=== PATIENT | male | born 1960 | race Caucasian/White ===

== ENCOUNTER 2017-08-21 14:50 | Inpatient (IN) | payer OTHER ==
[2017-08-21] VITALS (11 sets, daily range): BP systolic 110–142; BP diastolic 62–91; PULSE 72–146; RESP 14–20; TEMP 97.8–98.4; O2SAT 95–100
[~2017-08-21 14:50] MED LIST: ASPI81CH25 PO; EMPA1TAB PO; GLIP5TAB8 PO; GLUC-15; HYDR-3583 PO; INSU1INJ13 SQ; LINA1TAB PO; LORA-373 PO; PLAV75TA29 PO; ROSU1TAB10 PO; VIAG50TA PO
--- NOTE | 2017-08-21 15:10 | PD ---
HPI Chief Complaint: Cardiac Complaint Time Seen by Provider: 15:10 Travel History International Travel<30 days: No Contact w/Intl Traveler<30days: No Traveled to known affect area: No PFSH Past Medical History Hx Anticoagulant Therapy: Yes (PLAVIX) Cancer: No Cardiovascular Problems: Yes High Cholesterol: Yes Diabetes: Yes Endocrine: Yes Genitourinary: No Hypertension: Yes Immune Disorder: No Musculoskeletal: No Psychiatric: No Reproductive: No Respiratory: No Past Surgical History Cardiac Surgery: Yes Social History Alcohol Use: No Tobacco Use: No Substance Use: No Allergies-Medications (Allergen,Severity, Reaction): Coded Allergies: atorvastatin (Unverified Allergy, Unknown, leg cramps, 05/30/17) Reported Meds & Prescriptions Reported Meds & Active Scripts Active Plavix (Clopidogrel Bisulfate) 75 Mg Tab 75 Mg PO DAILY Aspirin Low Strength (Aspirin) 81 Mg Chew 81 Mg PO DAILY Rosuvastatin (Rosuvastatin Calcium) 40 Mg Tab 40 Mg PO DAILY Jentadueto XR (Linagliptin-Metformin XR) 2.5-1,000 Mg Tab 1 Tab PO BID Jardiance (Empagliflozin) 10 Mg Tab 10 Mg PO DAILY Reported Hydrocodone-Acetaminophen 10-325 mg Tab 1 Tab PO Q6H PRN Viagra (Sildenafil Citrate) 50 Mg Tab 50 Mg PO DAILY PRN Lorazepam 0.5 Mg Tab 0.5 Mg PO BID Glucose Meter Test Strips (Glucose Blood) 1 Fidelia Fidelia Tresiba Flextouch Pen Inj (Insulin Degludec Inj) 600 unit/3 ML Pen 40 Units SQ DAILY Glipizide 5 Mg Tab 5 Mg PO BIDAC Take 30 minutes before a meal Data Data Last Documented VS Vital Signs Date Time Temp Pulse Resp B/P (MAP) Pulse Ox O2 Delivery O2 Flow Rate FiO2 08/21/17 14:57 98.4 86 14 133/64 (87) 98 Orders Orders Electrocardiogram (08/21/17 14:56) Basic Metabolic Panel (Bmp) (08/21/17 14:56) Ckmb (Isoenzyme) Profile (08/21/17 14:56) Complete Blood Count With Diff (08/21/17 14:56) Magnesium (Mg) (08/21/17 14:56) Prothrombin Time / Inr (Pt) (08/21/17 14:56) Act Partial Throm Time (Ptt) (11/6/17 14:56) Troponin I (08/21/17 14:56) Chest, Pa & Lat (08/21/17 14:56) Jose Martins MD Aug 21, 2017 15:10
--- NOTE | 2017-08-21 15:24 | RADRPT ---
EXAM DATE/TIME: 08/21/2017 15:13 [place] COMPARISON: No previous studies available for comparison. INDICATIONS : Chest pain and rapid heart beat today MEDICAL HISTORY : Cardiovascular disease. SURGICAL HISTORY : coronary artery stent x 5 ENCOUNTER: Initial ACUITY: 1 day PAIN SCORE: 8/10 LOCATION: Bilateral chest FINDINGS: PA and lateral views of the chest demonstrate the lungs to be symmetrically aerated without evidence of mass, infiltrate or effusion. The cardiomediastinal contours are unremarkable. Osseous structure s are intact. CONCLUSION: No acute disease. Evan Arguello MD on August 21, 2017 at 15:22 Board Certified Radiologist. This report was verified electronically.
--- NOTE | 2017-08-21 15:57 | PD ---
HPI Chief Complaint: Cardiac Complaint Time Seen by Provider: 15:35 Travel History International Travel<30 days: No Contact w/Intl Traveler<30days: No Traveled to known affect area: No History of Present Illness HPI Patient is a 57-year-old male presenting to the emergency department for evaluation of palpitations. Patient states that approximately 8:30 this morning he began to feel his heart racing, experienced chest tightness and felt clammy. He went to his public relations studies director's office, Dr. Elias and it was noted that his heart rate was in the 140s and he was sent to the emergency department for evaluation for atrial flutter. Patient continues to have mild chest tightness, he states it feels like he pulled a muscle. He rates his pain as 3 out of 10. The chest pain does not radiate. He reports feeling nauseous yesterday but denies any abdominal pain, nausea or vomiting at this time. Patient reports a history of [place] last year with stent placement, type 2 diabetes, he reports last A1c is 7.1%, hyperlipidemia. He reports compliance of aspirin and Plavix. He is on a low dose lisinopril for renal protective effect. PFSH Past Medical History Hx Anticoagulant Therapy: Yes (PLAVIX) Cancer: No Cardiovascular Problems: Yes High Cholesterol: Yes Diabetes: Yes Endocrine: Yes Genitourinary: No Hypertension: Yes Immune Disorder: No Musculoskeletal: No Psychiatric: No Reproductive: No Respiratory: No Past Surgical History Cardiac Surgery: Yes Social History Alcohol Use: No Tobacco Use: No Substance Use: No Allergies-Medications (Allergen,Severity, Reaction): Coded Allergies: atorvastatin (Verified Allergy, Unknown, leg cramps, 08/21/17) Reported Meds & Prescriptions Reported Meds & Active Scripts Active Plavix (Clopidogrel Bisulfate) 75 Mg Tab 75 Mg PO DAILY Aspirin Low Strength (Aspirin) 81 Mg Chew 81 Mg PO DAILY Rosuvastatin (Rosuvastatin Calcium) 40 Mg Tab 40 Mg PO DAILY Jentadueto XR (Linagliptin-Metformin XR) 2.5-1,000 Mg Tab 1 Tab PO BID Jardiance (Empagliflozin) 10 Mg Tab 10 Mg PO DAILY Reported Lisinopril 2.5 Mg Tab 2.5 Mg PO DAILY Hydrocodone-Acetaminophen 10-325 mg Tab 1 Tab PO Q6H PRN Viagra (Sildenafil Citrate) 50 Mg Tab 50 Mg PO DAILY PRN Lorazepam 0.5 Mg Tab 0.5 Mg PO BID Glucose Meter Test Strips (Glucose Blood) 1 Fidelia Fidelia Tresiba Flextouch Pen Inj (Insulin Degludec Inj) 600 unit/3 ML Pen 40 Units SQ DAILY Glipizide 5 Mg Tab 5 Mg PO BIDAC Take 30 minutes before a meal Review of Systems Except as stated in HPI: all other systems reviewed are Neg General / Constitutional: No: Fever, Chills Eyes: No: Blurred Vision HENT: No: Headaches, Lightheadedness Cardiovascular: Positive: Chest Pain or Discomfort, Palpitations, Tachycardia, Diaphoresis Respiratory: Positive: Shortness of Breath Gastrointestinal: Positive: Nausea (resolved), No: Vomiting, Diarrhea Musculoskeletal: No: Myalgias Neurologic: No: Weakness, Dizziness, Syncope, Change in Mentation Physical Exam Narrative GENERAL: Well-developed, well-nourished, alert male. Resting comfortably in no acute distress. SKIN: Warm and dry. HEAD: Atraumatic. Normocephalic. EYES: Pupils equal and round. No scleral icterus. No injection or drainage. ENT: No nasal bleeding or discharge. Mucous membranes pink and moist. NECK: Trachea midline. No JVD. CARDIOVASCULAR: Irregularly irregular, tachycardic. RESPIRATORY: No accessory muscle use. Clear to auscultation. Breath sounds equal bilaterally. GASTROINTESTINAL: Abdomen soft, non-tender, nondistended. Hepatic and splenic margins not palpable. MUSCULOSKELETAL: Extremities without clubbing, cyanosis, or edema. No obvious deformities. NEUROLOGICAL: Awake and alert. No obvious cranial nerve deficits. Motor grossly within normal limits. Five out of 5 muscle strength in the arms and legs. Normal speech. PSYCHIATRIC: Appropriate mood and affect; insight and judgment normal. Data Data Last Documented VS Vital Signs Date Time Temp Pulse Resp B/P (MAP) Pulse Ox O2 Delivery O2 Flow Rate FiO2 08/21/17 17:08 121 136/76 08/21/17 16:29 16 95 Nasal Cannula 2.00 08/21/17 15:45 98.0 Orders Orders Electrocardiogram (08/21/17 14:56) Basic Metabolic Panel (Bmp) (08/21/17 14:56) Ckmb (Isoenzyme) Profile (08/21/17 14:56) Complete Blood Count With Diff (08/21/17 14:56) Magnesium (Mg) (08/21/17 14:56) Prothrombin Time / Inr (Pt) (08/21/17 14:56) Act Partial Throm Time (Ptt) (08/21/17 14:56) Troponin I (08/21/17 14:56) Chest, Pa & Lat (08/21/17 14:56) Thyroid Stimulating Hormone (08/21/17 15:43) Thyroxine (T4) (08/21/17 15:43) B-Type Natriuretic Peptide (08/21/17 15:43) Ecg Monitoring (08/21/17 15:43) Bilateral Bp Monitoring (08/21/17 15:43) Iv Access Insert/Monitor (08/21/17 15:43) Oximetry (08/21/17 15:43) Sodium Chloride 0.9% Flush (Ns Flush) (08/21/17 15:45) Diltiazem Inj (Cardizem Inj) (08/21/17 16:00) Diltiazem Inj (Cardizem Inj) (08/21/17 16:45) Sodium Chlor 0.9% 1000 Ml Inj (Ns 1000 M (08/21/17 16:45) Diltiazem Inj (Cardizem Inj) (08/21/17 17:15) CKMB (08/21/17 15:45) CKMB% (08/21/17 15:45) Electrocardiogram (08/21/17 ) Admit Order (Ed Use Only) (08/21/17 17:58) Labs Laboratory Tests Test 08/21/17 15:45 08/21/17 16:50 Prothrombin Time 10.5 SEC Prothromb Time International Ratio 1.0 RATIO Activated Partial Thromboplast Time 25.6 SEC Blood Urea Nitrogen 21 MG/DL Creatinine 1.36 MG/DL Random Glucose 208 MG/DL Calcium Level 8.9 MG/DL Magnesium Level 2.0 MG/DL Sodium Level 141 MEQ/L Potassium Level 3.8 MEQ/L Chloride Level 106 MEQ/L Carbon Dioxide Level 22.0 MEQ/L Anion Gap 13 MEQ/L Estimat Glomerular Filtration Rate 54 ML/MIN Total Creatine Kinase 131 U/L Creatine Kinase MB 2.1 NG/ML Troponin I LESS THAN 0.02 NG/ML B-Type Natriuretic Peptide 18 PG/ML Thyroxine (T4) 8.1 MCG/DL Thyroid Stimulating Hormone 3rd Gen 1.010 uIU/ML White Blood Count 11.1 TH/MM3 Red Blood Count 5.10 MIL/MM3 Hemoglobin 14.7 GM/DL Hematocrit 43.6 % Mean Corpuscular Volume 85.6 FL Mean Corpuscular Hemoglobin 28.8 PG Mean Corpuscular Hemoglobin Concent 33.6 % Red Cell Distribution Width 13.4 % Platelet Count 241 TH/MM3 Mean Platelet Volume 8.5 FL Neutrophils (%) (Auto) 69.3 % Lymphocytes (%) (Auto) 21.3 % Monocytes (%) (Auto) 7.7 % Eosinophils (%) (Auto) 1.4 % Basophils (%) (Auto) 0.3 % Neutrophils # (Auto) 7.7 TH/MM3 Lymphocytes # (Auto) 2.4 TH/MM3 Monocytes # (Auto) 0.9 TH/MM3 Eosinophils # (Auto) 0.2 TH/MM3 Basophils # (Auto) 0.0 TH/MM3 CBC Comment DIFF FINAL Differential Comment MDM Medical Decision Making Medical Screen Exam Complete: Yes Emergency Medical Condition: Yes Medical Record Reviewed: Yes Interpretation(s) Vital Signs Date Time Temp Pulse Resp B/P (MAP) Pulse Ox O2 Delivery O2 Flow Rate FiO2 08/21/17 14:57 98.4 86 14 133/64 (87) 98 Last Impressions Chest X-Ray 08/21/17 1456 Signed Impressions: Service Date/Time: Monday, August 21, 2017 15:13 - CONCLUSION: No acute disease. Evan Arguello MD Laboratory Tests Test 08/21/17 15:45 08/21/17 16:50 Prothrombin Time 10.5 SEC Prothromb Time International Ratio 1.0 RATIO Activated Partial Thromboplast Time 25.6 SEC Blood Urea Nitrogen 21 MG/DL Creatinine 1.36 MG/DL Random Glucose 208 MG/DL Calcium Level 8.9 MG/DL Magnesium Level 2.0 MG/DL Sodium Level 141 MEQ/L Potassium Level 3.8 MEQ/L Chloride Level 106 MEQ/L Carbon Dioxide Level 22.0 MEQ/L Anion Gap 13 MEQ/L Estimat Glomerular Filtration Rate 54 ML/MIN Total Creatine Kinase 131 U/L Creatine Kinase MB 2.1 NG/ML Troponin I LESS THAN 0.02 NG/ML B-Type Natriuretic Peptide 18 PG/ML Thyroxine (T4) 8.1 MCG/DL Thyroid Stimulating Hormone 3rd Gen 1.010 uIU/ML White Blood Count 11.1 TH/MM3 Red Blood Count 5.10 MIL/MM3 Hemoglobin 14.7 GM/DL Hematocrit 43.6 % Mean Corpuscular Volume 85.6 FL Mean Corpuscular Hemoglobin 28.8 PG Mean Corpuscular Hemoglobin Concent 33.6 % Red Cell Distribution Width 13.4 % Platelet Count 241 TH/MM3 Mean Platelet Volume 8.5 FL Neutrophils (%) (Auto) 69.3 % Lymphocytes (%) (Auto) 21.3 % Monocytes (%) (Auto) 7.7 % Eosinophils (%) (Auto) 1.4 % Basophils (%) (Auto) 0.3 % Neutrophils # (Auto) 7.7 TH/MM3 Lymphocytes # (Auto) 2.4 TH/MM3 Monocytes # (Auto) 0.9 TH/MM3 Eosinophils # (Auto) 0.2 TH/MM3 Basophils # (Auto) 0.0 TH/MM3 CBC Comment DIFF FINAL Differential Comment Differential Diagnosis A. fib with RVR versus congestive heart failure versus metabolic abnormality versus ACS versus other Narrative Course Patient is a 57-year-old male with a history of coronary artery disease, type 2 diabetes, hyperlipidemia presenting to the emergency department for evaluation of atrial flutter after being evaluated by his public relations studies director this morning. Initial EKG shows atrial flutter/tachycardia with a rate of 148. Vital signs are otherwise stable. Labs ordered and pending. Cardizem ordered. Patient continued to be tachycardic after 20 mg of Cardizem IV. A second Cardizem bolus followed by Cardizem drip was ordered. CBC reviewed, no acute findings identified Chemistry with slight elevation of BUN/creatinine otherwise unremarkable. Cardiac enzymes are negative 1 set BNP 18 Thyroid function is unremarkable Chest x-ray shows no acute disease Patient was reassessed at 1740, heart rate currently is in the 80s. Patient is resting comfortably, is at bedside. [facility] paged for admission. Discussed with Dr. Horton who accepted admission for Dr. Bridges. Admit orders placed. Repeat EKG shows atrial fibrillation with a rate of 94. Diagnosis Primary Impression: Atrial flutter with rapid ventricular response Additional Impression: Chest pain Qualified Codes: R07.9 - Chest pain, unspecified Admitting Information Admitting Physician Requests: Admit Condition: Stable Kmai Mccollum [facility] Aug 21, 2017 15:57
[2017-08-21] MEDS ORDERED: DILTIAZEM HCL 25 MG/5 ML VIAL IV ONE ×2 (16:00)
[2017-08-21] MEDS: SODIUM CHLORIDE 0.9% FLUSH 10 ML FLUSH IVF PRN ×4 (16:11→16:12)
[2017-08-21] MEDS ORDERED: LISI2.5T3 PO ×2 (16:29)
[2017-08-21 16:39] LABS: PROTHROMBIN TIME - PATIENT 10.5 SEC (9.8-11.6)
[2017-08-21] MEDS ORDERED: DILTIAZEM INJ 125 MG in SODIUM CHLORIDE 0.9% INJ 100 ML IV PRN ×4 (16:45)
[2017-08-21 16:47] LABS: THYROXINE (T4) 8.1 MCG/DL (4.5-12.1)
[2017-08-21] MEDS ORDERED: DILTIAZEM HCL 50 MG/10 ML VIAL IV PUSH ONE ×2 (17:00)
[2017-08-21] MEDS: SODIUM CHLOR 0.9% 1000 ML INJ 1,000 ML IV SCH ×2 (17:08)
[2017-08-21 17:14] LABS: TROPONIN I LESS THAN 0.02 NG/ML (0.02-0.05)
[2017-08-21] MEDS ORDERED: DILTIAZEM HCL 25 MG/5 ML (Bolus) IV PUSH ONE ×2 (17:15)
[2017-08-21 17:16] LABS: BLOOD UREA NITROGEN 21 MG/DL (7-18); CALCIUM 8.9 MG/DL (8.5-10.1); CHLORIDE 106 MEQ/L (98-107); CREATININE 1.36 MG/DL (0.60-1.30); GLOMERULAR FILTRATION RATE 54 ML/MIN (>89); GLUCOSE,RANDOM 208 MG/DL (74-106); SODIUM (NA) 141 MEQ/L (136-145)
[2017-08-21 17:20] LABS: AUTOMATED NEUTROPHIL # 7.7 TH/MM3 (1.8-7.7); BASOPHIL % 0.3 % (0.0-2.0); EOSINOPHIL # 0.2 TH/MM3 (0-0.4); EOSINOPHIL % 1.4 % (0.0-4.0); HEMATOCRIT 43.6 % (39.0-51.0); HEMOGLOBIN 14.7 GM/DL (13.0-17.0); LYMPH % 21.3 % (9.0-44.0); LYMPHOCYTE # 2.4 TH/MM3 (1.0-4.8); MEAN CELL VOLUME 85.6 FL (80.0-100.0); MEAN CORPUSCULAR HEMOGLOBIN 28.8 PG (27.0-34.0); MEAN CORPUSCULAR HGB CONC 33.6 % (32.0-36.0); MEAN PLATELET VOLUME 8.5 FL (7.0-11.0); MONO % 7.7 % (0.0-8.0); MONOCYTE # 0.9 TH/MM3 (0-0.9); NEUT % 69.3 % (16.0-70.0); PLATELET COUNT 241 TH/MM3 (150-450); RED CELL DISTRIBUTION WIDTH 13.4 % (11.6-17.2); WHITE BLOOD COUNT 11.1 TH/MM3 (4.0-11.0)
[2017-08-21] MEDS ORDERED: MAGNESIUM HYDROXIDE SUSP 30 ML CUP PO PRN ×2 (19:45)
[2017-08-21] MEDS ORDERED: SENNOSIDES 8.6 MG TAB PO PRN ×2 (19:45)
[2017-08-21] MEDS ORDERED: LACTULOSE SYRUP 20 GM/30 ML CUP PO PRN ×2 (19:45)
[2017-08-21] MEDS ORDERED: BISACODYL 10 MG SUPP RECTAL PRN ×2 (19:45)
[2017-08-21] MEDS ORDERED: NALOXONE HCL 0.4 MG/ML AMP IV PUSH PRN ×2 (19:45)
[2017-08-21] MEDS ORDERED: SODIUM CHLORIDE 0.9% FLUSH 10 ML FLUSH IV FLUSH PRN ×2 (19:45)
[2017-08-21] MEDS ORDERED: PILL SPLITTER OTHER PRN ×2 (20:30)
[2017-08-21] MEDS ORDERED: LINAGLIPTIN METFORMIN PO SCH ×2 (21:00)
[2017-08-21] MEDS ORDERED: METFORMIN PO SCH ×2 (21:00)
[2017-08-21] MEDS: DOCUSATE SODIUM 50 MG/SENNA 8.6 MG TAB PO SCH ×2 (21:00)
[2017-08-21] MEDS ORDERED: LINAGLIPTIN PO SCH ×2 (21:00)
[2017-08-21] MEDS: SODIUM CHLORIDE 0.9% FLUSH 10 ML FLUSH IV FLUSH SCH ×2 (21:00)
--- NOTE | 2017-08-21 21:07 | HHI.HP ---
HPI Service [facility] Hospitalists Primary Care Physician Noam Camilo MD, PhD Admission Diagnosis AFLUTTER W/ RVR Chief Complaint: sent by cardiology for rapid atrial flutter Travel History International Travel<30 Days: No Contact w/Intl Traveler <30 Da: No Traveled to Known Affected Are: No History of Present Illness Patient is a 57-year-old male presenting to the emergency department for evaluation of palpitations. Patient states that approximately 8:30 this morning he began to feel his heart racing, experienced chest tightness and felt clammy. 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 Elias and it was noted that his heart rate was in the 140s and he was sent to the emergency department for evaluation for atrial flutter. Patient continues to have mild chest tightness, he states it feels like he pulled a muscle. He rates his pain as 3 out of 10. The chest pain does not radiate. He reports feeling nauseous yesterday but denies any abdominal pain, nausea or vomiting at this time. Patient reports a history of [place] last year with stent placement, type 2 diabetes, he reports last A1c is 7.1%, hyperlipidemia. He reports compliance of aspirin and Plavix. He is on a low dose lisinopril for renal protective effect. Patient did receive cardiazem 2 bolus and drip with improvement of symptoms. Review of Systems Respiratory: COMPLAINS OF: Shortness of breath Cardiovascular: COMPLAINS OF: Chest pain, Palpitations Past Family Social History Past Medical History hyperlipidemia,diabetes,[place] cad Past Surgical History cardiac stent Reported Medications Plavix (Clopidogrel Bisulfate) 75 Mg Tab 75 Mg PO DAILY Aspirin Low Strength (Aspirin) 81 Mg Chew 81 Mg PO DAILY Rosuvastatin (Rosuvastatin Calcium) 40 Mg Tab 40 Mg PO DAILY Jentadueto XR (Linagliptin-Metformin XR) 2.5-1,000 Mg Tab 1 Tab PO BID Jardiance (Empagliflozin) 10 Mg Tab 10 Mg PO DAILY Reported Lisinopril 2.5 Mg Tab 2.5 Mg PO DAILY Hydrocodone-Acetaminophen 10-325 mg Tab 1 Tab PO Q6H PRN Viagra (Sildenafil Citrate) 50 Mg Tab 50 Mg PO DAILY PRN Lorazepam 0.5 Mg Tab 0.5 Mg PO BID Glucose Meter Test Strips (Glucose Blood) 1 Fidelia Fidelia Tresiba Flextouch Pen Inj (Insulin Degludec Inj) 600 unit/3 ML Pen 40 Units SQ DAILY Glipizide 5 Mg Tab 5 Mg PO BIDAC Take 30 minutes before a meal Allergies: Coded Allergies: atorvastatin (Verified Allergy, Unknown, leg cramps, 08/21/17) Social History NS,ND Physical Exam Vital Signs Vital Signs Date Time Temp Pulse Resp B/P (MAP) Pulse Ox O2 Delivery O2 Flow Rate FiO2 08/21/17 19:45 106 128/76 08/21/17 18:01 90 16 113/78 (90) 97 08/21/17 17:08 121 136/76 08/21/17 16:29 103 16 115/72 (86) 95 Nasal Cannula 2.00 08/21/17 15:45 146 115/78 (90) 08/21/17 15:45 (104) 08/21/17 15:45 98.0 145 142/72 (95) 130/91 (104) 08/21/17 15:45 Nasal Cannula 2.00 08/21/17 15:45 20 96 Nasal Cannula 2.00 08/21/17 14:57 98.4 86 14 133/64 (87) 98 Physical Exam GENERAL: This is a well-nourished, well-developed patient, in no apparent distress. SKIN: No rashes, ecchymoses or lesions. Cool and dry. HEAD: Atraumatic. Normocephalic. No temporal or scalp tenderness. EYES: Pupils equal round and reactive. Extraocular motions intact. No scleral icterus. No injection or drainage. ENT: Nose without bleeding, purulent drainage or septal hematoma. Throat without erythema, tonsillar hypertrophy or exudate. Uvula midline. Airway patent. NECK: Trachea midline. No JVD or lymphadenopathy. Supple, nontender, no meningeal signs. CARDIOVASCULAR: Irreg rate and rhythm without murmurs, gallops, or rubs. RESPIRATORY: Clear to auscultation. Breath sounds equal bilaterally. No wheezes , rales, or rhonchi. GASTROINTESTINAL: Abdomen soft, non-tender, nondistended. No hepato-splenomegaly , or palpable masses. No guarding. MUSCULOSKELETAL: Extremities without clubbing, cyanosis, or edema. No joint tenderness, effusion, or edema noted. No calf tenderness. Negative Homans sign bilaterally. NEUROLOGICAL: Awake and alert. Cranial nerves II through XII intact. Motor and sensory grossly within normal limits. Five out of 5 muscle strength in all muscle groups. Normal speech. Laboratory Laboratory Tests Test 08/21/17 15:45 08/21/17 16:50 Prothrombin Time 10.5 Prothromb Time International Ratio 1.0 Activated Partial Thromboplast Time 25.6 Blood Urea Nitrogen 21 Creatinine 1.36 Random Glucose 208 Calcium Level 8.9 Magnesium Level 2.0 Sodium Level 141 Potassium Level 3.8 Chloride Level 106 Carbon Dioxide Level 22.0 Anion Gap 13 Estimat Glomerular Filtration Rate 54 Total Creatine Kinase 131 Creatine Kinase MB 2.1 Troponin I LESS THAN 0.02 B-Type Natriuretic Peptide 18 Thyroxine (T4) 8.1 Thyroid Stimulating Hormone 3rd Gen 1.010 White Blood Count 11.1 Red Blood Count 5.10 Hemoglobin 14.7 Hematocrit 43.6 Mean Corpuscular Volume 85.6 Mean Corpuscular Hemoglobin 28.8 Mean Corpuscular Hemoglobin Concent 33.6 Red Cell Distribution Width 13.4 Platelet Count 241 Mean Platelet Volume 8.5 Neutrophils (%) (Auto) 69.3 Lymphocytes (%) (Auto) 21.3 Monocytes (%) (Auto) 7.7 Eosinophils (%) (Auto) 1.4 Basophils (%) (Auto) 0.3 Neutrophils # (Auto) 7.7 Lymphocytes # (Auto) 2.4 Monocytes # (Auto) 0.9 Eosinophils # (Auto) 0.2 Basophils # (Auto) 0.0 CBC Comment DIFF FINAL Differential Comment Result Diagram: 08/21/17 1650 08/21/17 1545 Imaging Last 24 hours Impressions Chest X-Ray 08/21/17 1456 Signed Impressions: Service Date/Time: Monday, August 21, 2017 15:13 - CONCLUSION: No acute disease. Evan Arguello MD Course ekg rapid atrial flutter ronald controlled ventricular response Caprini VTE Risk Assessment Caprini VTE Risk Assessment: Mod/High Risk (score >= 2) Caprini Risk Assessment Model Point Value = 1 Point Value = 2 Point Value = 3 Point Value = 5 Age 41-60 Minor surgery BMI > 25 kg/m2 Swollen legs Varicose veins or History of unexplained or recurrent spontaneous Oral contraceptives or hormone replacement Sepsis (< 1 month) Serious lung disease, including pneumonia (< 1 month) Abnormal pulmonary function Acute myocardial infarction Congestive heart failure (< 1 month) History of inflammatory bowel disease Medical patient at bed rest Age 61-74 Arthroscopic surgery Major open surgery (> 45 min) Laparoscopic surgery (> 45 min) Malignancy Confined to bed (> 72 hours) Immobilizing plaster cast Central venous access Age >= 75 History of VTE Family history of VTE Factor V Leiden Prothrombin [id number] Lupus anticoagulant Anticardiolipin antibodies Elevated serum homocysteine Heparin-induced thrombocytopenia Other congenital or acquired thrombophilia Stroke (< 1 month) Elective arthroplasty Hip, pelvis, or leg fracture Acute spinal cord injury (< 1 month) Prophylaxis Regimen Total Risk Factor Score Risk Level Prophylaxis Regimen 0-1 Low Early ambulation 2 Moderate Order ONE of the following: *Sequential Compression Device (SCD) *Heparin 5000 units SQ BID 3-4 Higher Order ONE of the following medications: *Heparin 5000 units SQ TID *Enoxaparin/Lovenox 40 mg SQ daily (WT < 150 kg, CrCl > 30 mL/min) *Enoxaparin/Lovenox 30 mg SQ daily (WT < 150 kg, CrCl > 10-29 mL/min) *Enoxaparin/Lovenox 30 mg SQ BID (WT < 150 kg, CrCl > 30 mL/min) AND/OR *Sequential Compression Device (SCD) 5 or more Highest Order ONE of the following medications: *Heparin 5000 units SQ TID (Preferred with Epidurals) *Enoxaparin/Lovenox 40 mg SQ daily (WT < 150 kg, CrCl > 30 mL/min) *Enoxaparin/Lovenox 30 mg SQ daily (WT < 150 kg, CrCl > 10-29 mL/min) *Enoxaparin/Lovenox 30 mg SQ BID (WT < 150 kg, CrCl > 30 mL/min) AND *Sequential Compression Device (SCD) Assessment and Plan Problem List: (1) Atrial flutter with rapid ventricular response ICD Codes: I48.92 - Unspecified atrial flutter Status: Acute Plan: continue cardiazem drip consult Dr. Elias 2decho (2) Type 1 diabetes mellitus ICD Codes: E10.9 - Type 1 diabetes mellitus without complications Status: Acute Plan: continue home meds accucheck with coverage Assessment and Plan further plan as case develops Code Status full Discussed Condition With patient and family Physician Certification 2 Midnight Certification Type: Admission for Inpatient Services Order for Inpatient Services The services are ordered in accordance with Medicare regulations or non- Medicare payer requirements, as applicable. In the case of services not specified as inpatient-only, they are appropriately provided as inpatient services in accordance with the 2-midnight benchmark. Estimated LOS (days): 2 2 days is the estimated time the patient will need to remain in the hospital, assuming treatment plan goals are met and no additional complications. Post-Hospital Plan: Home Glenn Espino MD Aug 21, 2017 21:07
[2017-08-21] MEDS ORDERED: DEXTROSE 50% IN WATER 50 ML VIAL(D50) IV PUSH PRN (21:30)
[2017-08-21] MEDS ORDERED: GLUCAGON 1 MG/ML VIAL OTHER PRN ×2 (21:30)
[2017-08-21] MEDS: LORazepam 0.5 MG TAB PO SCH ×2 (21:41)
[2017-08-21] MEDS: ACETAMINOPHEN/HYDROcodone 325 MG/10 MG TAB PO PRN ×2 (21:44)
[2017-08-22] VITALS (9 sets, daily range): BP systolic 111; BP diastolic 68; PULSE 56–77; RESP 16–18; TEMP 98.6; O2SAT 96
[2017-08-22] MEDS: SODIUM CHLOR 0.9% 1000 ML INJ 1,000 ML IV SCH ×4 (00:24→08:45)
[2017-08-22 06:37] LABS: BLOOD UREA NITROGEN 17 MG/DL (7-18); CALCIUM 8.3 MG/DL (8.5-10.1); CHLORIDE 109 MEQ/L (98-107); CREATININE 1.01 MG/DL (0.60-1.30); GLOMERULAR FILTRATION RATE 76 ML/MIN (>89); GLUCOSE,RANDOM 209 MG/DL (74-106); SODIUM (NA) 141 MEQ/L (136-145)
[2017-08-22 06:41] LABS: TROPONIN I LESS THAN 0.02 NG/ML (0.02-0.05)
[2017-08-22] MEDS ORDERED: glipiZIDE 5 MG TAB PO SCH ×2 (07:00)
--- NOTE | 2017-08-22 07:57 | MB ---
cc: ELADIO ESQUIVEL MD DATE OF CONSULTATION 08/22/2017 HISTORY This is a 57-year-old gentleman who is admitted to the hospital for palpitations. He has a history of coronary artery disease with inferior [place] and PCI and stenting last August. Since that time, he has noted episodes of chest fluttering which are generally short lived lasting only several minutes at a time. He initially had a prolonged episode in which he became actually somewhat clammy and came to the hospital where he was found to have atrial flutter with a rapid response. He was given a Cardizem infusion and has converted back to sinus rhythm. No chest pain has been present. He denies any shortness of breath. He has actually felt well since his [place]. MEDICATIONS His current medications have included: 1. Aspirin 81 mg daily 2. Plavix 75 daily 3. Rosuvastatin 40 daily 4. Jardiance 5. Jentadueto 6. Lisinopril 7. Glipizide ALLERGIES He has no allergies but he has an adverse reaction to atorvastatin. SOCIAL HISTORY The patient does not smoke, drink or use recreational drugs. PHYSICAL EXAM On physical exam, he is awake and alert. He is in no distress and feels well. VITAL SIGNS: BP is 111/70, pulse is 60 and regular. NECK: There is no neck vein distension. Carotids are normal. LUNGS: Clear. CARDIOVASCULAR: Exam reveals a regular rate and rhythm with no significant murmur, no gallop is noted. ABDOMEN: Soft. There is no tenderness or organomegaly. EXTREMITIES: Reveal no edema. ASSESSMENT The patient has had paroxysmal atrial flutter. He has converted back to sinus rhythm. At this point in time, we will put him on a small dose of metoprolol 25 mg twice a day which we will call in to the [place] pharmacy for him. It is okay to allow him to be discharged today with follow up with Dr. Elias. There is no evidence to suggest that he has had a restenosis of his stent will otherwise keep his other medical regimen the same. MD JAROD Carr/KELSEY /7:42 AM 7:50 AM
--- NOTE | 2017-08-22 07:57 | MB ---
cc: ELADIO ESQUIVEL MD DATE OF CONSULTATION 08/22/2017 HISTORY This is a 57-year-old gentleman who is admitted to the hospital for palpitations. He has a history of coronary artery disease with inferior SC and PCI and stenting last August. Since that time, he has noted episodes of chest fluttering which are generally short lived lasting only several minutes at a time. He initially had a prolonged episode in which he became actually somewhat clammy and came to the hospital where he was found to have atrial flutter with a rapid response. He was given a Cardizem infusion and has converted back to sinus rhythm. No chest pain has been present. He denies any shortness of breath. He has actually felt well since his SC. MEDICATIONS His current medications have included: 1. Aspirin 81 mg daily 2. Plavix 75 daily 3. Rosuvastatin 40 daily 4. Jardiance 5. Jentadueto 6. Lisinopril 7. Glipizide ALLERGIES He has no allergies but he has an adverse reaction to atorvastatin. SOCIAL HISTORY The patient does not smoke, drink or use recreational drugs. PHYSICAL EXAM On physical exam, he is awake and alert. He is in no distress and feels well. VITAL SIGNS: BP is 111/70, pulse is 60 and regular. NECK: There is no neck vein distension. Carotids are normal. LUNGS: Clear. CARDIOVASCULAR: Exam reveals a regular rate and rhythm with no significant murmur, no gallop is noted. ABDOMEN: Soft. There is no tenderness or organomegaly. EXTREMITIES: Reveal no edema. ASSESSMENT The patient has had paroxysmal atrial flutter. He has converted back to sinus rhythm. At this point in time, we will put him on a small dose of metoprolol 25 mg twice a day which we will call in to the [facility] pharmacy for him. It is okay to allow him to be discharged today with follow up with Dr. Elias. There is no evidence to suggest that he has had a restenosis of his stent will otherwise keep his other medical regimen the same. MD JAROD Carr/KELSEY /7:42 AM 7:50 AM
--- NOTE | 2017-08-22 07:57 | MB ---
cc: ELADIO ESQUIVEL MD DATE OF CONSULTATION 08/22/2017 HISTORY This is a 57-year-old gentleman who is admitted to the hospital for palpitations. He has a history of coronary artery disease with inferior OH and PCI and stenting last August. Since that time, he has noted episodes of chest fluttering which are generally short lived lasting only several minutes at a time. He initially had a prolonged episode in which he became actually somewhat clammy and came to the hospital where he was found to have atrial flutter with a rapid response. He was given a Cardizem infusion and has converted back to sinus rhythm. No chest pain has been present. He denies any shortness of breath. He has actually felt well since his OH. MEDICATIONS His current medications have included: 1. Aspirin 81 mg daily 2. Plavix 75 daily 3. Rosuvastatin 40 daily 4. Jardiance 5. Jentadueto 6. Lisinopril 7. Glipizide ALLERGIES He has no allergies but he has an adverse reaction to atorvastatin. SOCIAL HISTORY The patient does not smoke, drink or use recreational drugs. PHYSICAL EXAM On physical exam, he is awake and alert. He is in no distress and feels well. VITAL SIGNS: BP is 111/70, pulse is 60 and regular. NECK: There is no neck vein distension. Carotids are normal. LUNGS: Clear. CARDIOVASCULAR: Exam reveals a regular rate and rhythm with no significant murmur, no gallop is noted. ABDOMEN: Soft. There is no tenderness or organomegaly. EXTREMITIES: Reveal no edema. ASSESSMENT The patient has had paroxysmal atrial flutter. He has converted back to sinus rhythm. At this point in time, we will put him on a small dose of metoprolol 25 mg twice a day which we will call in to the [facility] for him. It is okay to allow him to be discharged today with follow up with Dr. Elias. There is no evidence to suggest that he has had a restenosis of his stent will otherwise keep his other medical regimen the same. MD JAROD Carr/KELSEY /7:42 AM 7:50 AM
--- NOTE | 2017-08-22 08:20 | HHI.DCPOC ---
Discharge Care Plan Diagnosis: (1) Atrial flutter with rapid ventricular response (2) Type 1 diabetes mellitus Goals to Promote Your Health * To prevent worsening of your condition and complications * To maintain your health at the optimal level Directions to Meet Your Goals Take your medications as prescribed Follow your dietary instruction Follow activity as directed Keep your appointments as scheduled Take your immunizations and boosters as scheduled If your symptoms worsen call your PCP, if no PCP go to Urgent Care Center or Emergency Room Smoking is Dangerous to Your Health. Avoid second hand smoke Call the 24-hour hour crisis hotline for domestic abuse at Matilde Weinstein Aug 22, 2017 08:20
--- NOTE | 2017-08-22 08:20 | HHI.DCPOC ---
Discharge Care Plan Diagnosis: (1) Atrial flutter with rapid ventricular response (2) Type 1 diabetes mellitus Goals to Promote Your Health * To prevent worsening of your condition and complications * To maintain your health at the optimal level Directions to Meet Your Goals Take your medications as prescribed Follow your dietary instruction Follow activity as directed Keep your appointments as scheduled Take your immunizations and boosters as scheduled If your symptoms worsen call your PCP, if no PCP go to Urgent Care Center or Emergency Room Smoking is Dangerous to Your Health. Avoid second hand smoke Call the 24-hour hour crisis hotline for domestic abuse at Matilde Weinstein Aug 22, 2017 08:20
--- NOTE | 2017-08-22 08:20 | HHI.DCPOC ---
Discharge Care Plan Diagnosis: (1) Atrial flutter with rapid ventricular response (2) Type 1 diabetes mellitus Goals to Promote Your Health * To prevent worsening of your condition and complications * To maintain your health at the optimal level Directions to Meet Your Goals Take your medications as prescribed Follow your dietary instruction Follow activity as directed Keep your appointments as scheduled Take your immunizations and boosters as scheduled If your symptoms worsen call your PCP, if no PCP go to Urgent Care Center or Emergency Room Smoking is Dangerous to Your Health. Avoid second hand smoke Call the 24-hour hour crisis hotline for domestic abuse at Matilde Weinstein Aug 22, 2017 08:20
[2017-08-22] MEDS ORDERED: METO25TA3 PO ×2 (08:55)
--- NOTE | 2017-08-22 08:57 | HHI.PR ---
Subjective Remarks Pt feeling well this morning, no new complaints Cardizem was stopped overnight as HR decreased to the 50's Currently with HR in the mid 60's on telemetry, NSR Objective Vitals Vital Signs Date Time Temp Pulse Resp B/P (MAP) Pulse Ox O2 Delivery O2 Flow Rate FiO2 08/22/17 06:00 56 08/22/17 05:00 58 08/22/17 04:00 59 08/22/17 03:00 98.6 70 16 111/68 (82) 96 08/22/17 03:00 56 08/22/17 02:00 59 08/22/17 01:00 69 08/22/17 00:00 77 08/21/17 23:00 84 08/21/17 23:00 72 123/75 (91) 08/21/17 22:15 97.8 83 16 130/85 (100) 96 08/21/17 22:15 83 08/21/17 22:15 78 17 118/68 (85) 97 08/21/17 20:00 104 20 128/85 (99) 99 Nasal Cannula 2.00 08/21/17 19:45 106 128/76 08/21/17 19:45 98 20 128/76 (93) 98 Nasal Cannula 2.00 08/21/17 19:30 105 18 137/72 (93) 100 Nasal Cannula 2.00 08/21/17 19:00 96 16 122/81 (95) 100 Nasal Cannula 2.00 08/21/17 18:01 90 16 113/78 (90) 97 08/21/17 17:08 121 136/76 08/21/17 16:29 103 16 115/72 (86) 95 Nasal Cannula 2.00 08/21/17 15:45 146 115/78 (90) 08/21/17 15:45 (104) 08/21/17 15:45 98.0 145 142/72 (95) 130/91 (104) 08/21/17 15:45 Nasal Cannula 2.00 08/21/17 15:45 20 96 Nasal Cannula 2.00 08/21/17 14:57 98.4 86 14 133/64 (87) 98 Result Diagram: 08/21/17 [id number] 08/22/17 [id number] Other Results Laboratory Tests Test 08/21/17 15:45 08/21/17 16:50 08/22/17 04:57 Prothrombin Time 10.5 SEC Prothromb Time International Ratio 1.0 RATIO Activated Partial Thromboplast Time 25.6 SEC Blood Urea Nitrogen 21 MG/DL 17 MG/DL Creatinine 1.36 MG/DL 1.01 MG/DL Random Glucose 208 MG/DL 209 MG/DL Calcium Level 8.9 MG/DL 8.3 MG/DL Magnesium Level 2.0 MG/DL Sodium Level 141 MEQ/L 141 MEQ/L Potassium Level 3.8 MEQ/L 3.9 MEQ/L Chloride Level 106 MEQ/L 109 MEQ/L Carbon Dioxide Level 22.0 MEQ/L 24.0 MEQ/L Anion Gap 13 MEQ/L 8 MEQ/L Estimat Glomerular Filtration Rate 54 ML/MIN 76 ML/MIN Total Creatine Kinase 131 U/L Creatine Kinase MB 2.1 NG/ML Troponin I LESS THAN 0.02 NG/ML LESS THAN 0.02 NG/ML B-Type Natriuretic Peptide 18 PG/ML Thyroxine (T4) 8.1 MCG/DL Thyroid Stimulating Hormone 3rd Gen 1.010 uIU/ML White Blood Count 11.1 TH/MM3 Red Blood Count 5.10 MIL/MM3 Hemoglobin 14.7 GM/DL Hematocrit 43.6 % Mean Corpuscular Volume 85.6 FL Mean Corpuscular Hemoglobin 28.8 PG Mean Corpuscular Hemoglobin Concent 33.6 % Red Cell Distribution Width 13.4 % Platelet Count 241 TH/MM3 Mean Platelet Volume 8.5 FL Neutrophils (%) (Auto) 69.3 % Lymphocytes (%) (Auto) 21.3 % Monocytes (%) (Auto) 7.7 % Eosinophils (%) (Auto) 1.4 % Basophils (%) (Auto) 0.3 % Neutrophils # (Auto) 7.7 TH/MM3 Lymphocytes # (Auto) 2.4 TH/MM3 Monocytes # (Auto) 0.9 TH/MM3 Eosinophils # (Auto) 0.2 TH/MM3 Basophils # (Auto) 0.0 TH/MM3 CBC Comment DIFF FINAL Differential Comment Imaging Last 24 hours Impressions Chest X-Ray 08/21/17 [id number] Signed Impressions: Service Date/Time: Monday, August 21, 2017 15:13 - CONCLUSION: No acute disease. Evan Arguello MD Objective Remarks General: NAD, AAOx3 Chest: CTA Cardiac: Regular Abd: +BS, soft ND/NT Ext: No edema A/P Problem List: (1) Atrial flutter with rapid ventricular response ICD Codes: I48.92 - Unspecified atrial flutter Status: Acute Plan: - Pt is a 57 y/o male with hx of CAD s/p PTCA with stenting in 08/[address] Elias - [place] [facility] [place] with complaints of palpitations. Pt was found to be in A. flutter with RVR - Pt was started on Cardizem gtt in the ED - HR improved and pt converted to NSR - HR decreased last night into the 50s and Cardizem was stopped - Pt has been evaluated by Cardiology and recommended to start Metoprolol 25mg po BID - We will start Metoprolol this morning and monitor HR on telemetry today - If HR is stable then plan to discharge home this afternoon. - Pt will need to followup with Dr. Elias in 1 week. (2) Type 1 diabetes mellitus ICD Codes: E10.9 - Type 1 diabetes mellitus without complications Status: Acute Plan: - Continue home meds - NovoLog SSI - Accu check Matilde Weinstein Aug 22, 2017 08:57
[2017-08-22] MEDS ORDERED: EMPAGLIFLOZIN 10 MG PO SCH ×2 (09:00)
[2017-08-22] MEDS ORDERED: METOPROLOL TARTRATE 25 MG TAB PO SCH ×2 (09:00)
[2017-08-22] MEDS ORDERED: ROSUVASTATIN 40 MG PO SCH ×2 (09:00)
[2017-08-22] MEDS ORDERED: INSULIN DEGLUDEC 40 UNIT SQ SCH ×2 (09:00)
[2017-08-22] MEDS ORDERED: LISINOPRIL 5 MG TAB PO SCH ×2 (09:00)
[2017-08-22] MEDS: SODIUM CHLORIDE 0.9% FLUSH 10 ML FLUSH IV FLUSH SCH ×2 (09:00)
[2017-08-22] MEDS: LORazepam 0.5 MG TAB PO SCH ×2 (09:00)
[2017-08-22] MEDS ORDERED: [UNRECOGNIZED DRUG - OTHER] PO SCH ×2 (09:00)
[2017-08-22] MEDS ORDERED: [UNRECOGNIZED DRUG - OTHER] SQ SCH ×2 (09:00)
[2017-08-22] MEDS ORDERED: NON-FORMULARY DRUG (Lisinopril 2.5 MG) PO SCH ×2 (09:00)
[2017-08-22] MEDS: DOCUSATE SODIUM 50 MG/SENNA 8.6 MG TAB PO SCH ×2 (09:00)
[2017-08-22] MEDS ORDERED: NON-FORMULARY DRUG (Rosuvastatin 40 MG) PO SCH ×2 (09:00)
[2017-08-22] MEDS ORDERED: ASPIRIN 81 MG CHEW TAB PO SCH ×2 (09:00)
[2017-08-22] MEDS ORDERED: CLOPIDOGREL 75 MG TAB PO SCH ×2 (09:00)
[2017-08-22] MEDS: INSULIN ASPART SUPPLEMENTAL SCALE SQ SCH ×4 (09:24→12:00)
[2017-08-22] MEDS: ACETAMINOPHEN/HYDROcodone 325 MG/10 MG TAB PO PRN ×2 (13:34)
--- NOTE | 2017-08-22 18:30 | ECHRPT ---
Indication: ATRIAL FIB/FLUTTER CONCLUSIONS Normal left ventricular size. Possible mild concentric left ventricular hypertrophy. The left ventricular systolic function is low normal with an estimated ejection fraction in the rang e of 50- 55%. Mild mitral valve regurgitation. The pulmonary valve is not well visualized. BP: 111 / 68 HR: Rhythm: Sinus MEASUREMENTS (Male / Female) Normal Values Technical Quality:Fair 2D ECHO LV Diastolic Diameter PLAX 3.6 cm 4.2 - 5.9 / 3.9 - 5.3 cm LV Systolic Diameter PLAX 2.7 cm IVS Diastolic Thickness 1.1 cm 0.6 - 1.0 / 0.6 - 0.9 cm LVPW Diastolic Thickness 1.1 cm 0.6 - 1.0 / 0.6 - 0.9 cm LV Relative Wall Thickness 0.6 LVOT Diameter 2.1 cm Aortic Root Diameter 3.4 cm LA Systolic Diameter LX 2.1 cm 3.0 - 4.0 / 2.7 - 3.8 cm M-MODE AV Cusp Separation MM 2.1 cm DOPPLER AV Peak Velocity 101.0 cm/s AV Peak Gradient 4.1 mmHg AV Mean Gradient 2.0 mmHg AV Velocity Time Integral 21.6 cm LVOT Peak Velocity 88.7 cm/s LVOT Peak Gradient 3.1 mmHg LVOT Velocity Time Integral 18.1 cm AV Area Cont Eq vti 2.9 cm AV Area Cont Eq pk 3.0 cm Mitral E Point Velocity 82.4 cm/s Mitral A Point Velocity 52.3 cm/s Mitral E to A Ratio 1.6 LV E' Lateral Velocity 9.8 cm/s Mitral E to LV E' Lateral Ratio 8.4 LV E' Septal Velocity 8.3 cm/s Mitral E to LV E' Septal Ratio 9.9 PV Peak Velocity 45.9 cm/s PV Peak Gradient 0.8 mmHg FINDINGS LEFT VENTRICLE Normal left ventricular size. Mild concentric left ventricular hypertrophy. The left ventricular systolic function is low normal with an estimated ejection fraction in the rang e of 50- 55%. RIGHT VENTRICLE Normal right ventricular size and systolic function. LEFT ATRIUM The left atrial size is normal. RIGHT ATRIUM The right atrial size is normal. ATRIAL SEPTUM Normal atrial septal thickness without atrial level shunting by limited color doppler interrogation. AORTA The aortic root and proximal ascending aorta are normal in size on limited imaging. MITRAL VALVE Mild mitral valve regurgitation. AORTIC VALVE Trileaflet aortic valve. No aortic valve stenosis or regurgitation. TRICUSPID VALVE Structurally normal tricuspid valve. No tricuspid valve stenosis or regurgitation. PULMONARY VALVE The pulmonary valve is not well visualized. VESSELS The inferior vena cava is normal in size. PERICARDIUM No pericardial effusion. Mj Godfrey MD (Electronically Signed) Final Date:22 August 2017 18:29
--- NOTE | 2017-08-22 18:48 | EKG ---
Date Performed: 08/21/2017 Time Performed: 15:55:20 PTAGE: 57 years EKG: ATRIAL FLUTTER/TACHYCARDIA WITH RAPID VENTRICULAR RESPONSE BORDERLINE LEFT AXIS DEVIATION M ODERATE ST DEPRESSION WHEN COMPARED TO PRIOR EKG PATIENT IS NOW IN ATRIAL FLUTTER WITH RAPID VENTRICU LAR RATE. ABNORMAL ECG PREVIOUS TRACING : 09/15/2016 05.38 DOCTOR: Nery Mcghee Interpretating Date/Time 08/22/2017 18:47:30
--- NOTE | 2017-08-22 18:49 | EKG ---
Date Performed: 08/21/2017 Time Performed: 17:51:08 PTAGE: 57 years EKG: ATRIAL FIBRILLATION WHEN COMPARED TO PRIOR EKG PATIENT IS NOW RATE CONTROL. ABNORMAL RHYTHM ECG PREVIOUS TRACING : 08/21/2017 15.55 DOCTOR: Nery Mcghee Interpretating Date/Time 08/22/2017 18:48:45
== END 2017-08-22 16:13 | disposition home or self-care (01) | DRG 310 ==
LOC: NEPE 14:50 → NEDA 17:59 → HCIS 22:11
PROVIDERS: ADMIT Hospitalist; ATTEND Hospitalist
DX: I48.92 Unspecified atrial flutter (principal); I10 Essential (primary) hypertension; E10.9 Type 1 diabetes mellitus without complications; I25.10 Atherosclerotic heart disease of native coronary artery without angina pectoris; I48.91 Unspecified atrial fibrillation; I25.2 Old myocardial infarction; Z95.5 Presence of coronary angioplasty implant and graft; Z79.4 Long term (current) use of insulin; E78.00 Pure hypercholesterolemia, unspecified
CPT/HCPCS: 71020; 80048; 82550; 82552; 82948; 83735; 83880; 84436; 84443; 84484; 85025; 85610; 85730; 93005; 93306; J1815; J7030